=== PATIENT | female | born 1995 ===

== ENCOUNTER 2018-09-17 07:30 | Outpatient (CLI) | payer OTHER ==
--- NOTE | 2018-09-17 09:31 | ULT ---
LEFT BREAST ULTRASOUND: HISTORY: A 23-year-old female with left breast mass. FINDINGS: Sonographic evaluation of the region of palpable concern, at the 1 o'clock position of the left breas t, 4 cm from the nipple, demonstrates no abnormality. Further evaluation (including biopsy) should be based on clinical findings/suspicion. POS: OFF
== END 2018-09-17 07:31 | disposition home or self-care (01) ==
LOC: BICULT 07:30
PROVIDERS: ATTEND Physician Assistant
DX: N63.20 Unspecified lump in the left breast, unspecified quadrant (principal)